=== PATIENT | female | born 1985 | race Caucasian/White ===

== ENCOUNTER 2021-10-14 15:06 | Outpatient (CLI) | payer BC | END 2021-10-14 15:07 | disposition home or self-care (01) | LOC: CSHRAD 15:06 | PROVIDERS: ATTEND Advanced Practice Midwife | DX: Z86.16 Personal history of COVID-19 (principal) | CPT/HCPCS: 71046 ==

== ENCOUNTER 2021-12-13 19:17 | Inpatient (IN) | payer BC ==
[2021-12-13 19:40] VITALS: BMI 29.9
[2021-12-13] MEDS ORDERED: hydrALAZINE 20 MG/ML VIAL SLOW IVP PRN (20:23)
[2021-12-13] MEDS ORDERED: Methylergonovine 0.2 MG/ML VIAL IM PRN (20:23)
[2021-12-13] MEDS ORDERED: Lactated Ringer's 1,000 ML IV PRN (20:23)
[2021-12-13] MEDS ORDERED: NS w/ Oxytocin 30 units 500 ML IV PRN (20:23)
[2021-12-13] MEDS ORDERED: Misoprostol 200 MCG TAB PR PRN (20:23)
[2021-12-13] MEDS ORDERED: Lidocaine 1% (PF) 30 ML VIAL SC PRN (20:23)
[2021-12-13] MEDS ORDERED: Ibuprofen 800 MG TAB PO PRN (20:23)
[2021-12-13] MEDS ORDERED: Promethazine HCl 25 MG/ML VIAL IM PRN (20:23)
[2021-12-13] MEDS ORDERED: HYDROcodone/Acetaminophen 5/325 mg Tablet PO PRN ×2 (20:23)
[2021-12-13] MEDS ORDERED: Ondansetron PF 4 MG/2 ML Vial IVP PRN (20:23)
[2021-12-13] MEDS ORDERED: Acetaminophen 500 MG TAB PO PRN (20:23)
[2021-12-13] MEDS ORDERED: NS w/ Oxytocin 30 units 500 ML IV SCH (21:00)
[2021-12-13 21:58] LABS: Hemoglobin 12.9 g/dL (12.0-15.5); Mean Corpuscular HGB CONC 34.4 g/dL (32.0-36.0); Mean Corpuscular Hemoglobin 29.6 pg (27.0-33.0); Mean Platelet Volume 11.4 fl (7.4-10.4); Platelet Count 125 10x3/uL (150-450); RBC Distribution Width 13.2 % (11.5-14.5); Red Blood Cell (RBC) Count 4.36 10x6/uL (3.90-5.03); White Blood Cell (WBC) Count 11.9 10x3/uL (3.5-10.5)
[2021-12-13] MEDS ORDERED: Oxytocin 10 UNITS/ML VIAL ONE (22:03)
[2021-12-13 22:06] LABS: INR-International Normal Ratio 0.9; PTT 27.4 sec (22.0-33.0); Prothrombin Time 9.3 sec (9.5-12.1)
[2021-12-13 22:35] LABS: Hep B Surf Ag Non-Reactive S/CO (NonReactive)
[2021-12-13 22:39] LABS: Syphilis Antibody Nonreactive (Nonreactive); Syphilis Antibody Index 0.04 S/CO (<1.00 Non-Reactive)
[2021-12-14] MEDS ORDERED: Benzocaine-Menthol 82.5 ML CAN TOP PRN (03:25)
[2021-12-14] MEDS ORDERED: Preparation H Ointment 28 GM TUBE PR PRN (03:25)
[2021-12-14] MEDS ORDERED: Misoprostol 200 MCG TAB VAG PRN (03:25)
[2021-12-14] MEDS ORDERED: hydrALAZINE 20 MG/ML VIAL SLOW IVP PRN (03:25)
[2021-12-14] MEDS ORDERED: Lanolin Ointment 7 GM TUBE TOP PRN (03:25)
[2021-12-14] MEDS ORDERED: Milk Of Magnesia 30 ML UDCUP PO PRN (03:25)
[2021-12-14] MEDS ORDERED: Methylergonovine 0.2 MG/ML VIAL IM PRN (03:25)
[2021-12-14] MEDS ORDERED: Ondansetron PF 4 MG/2 ML Vial IVP PRN (03:25)
[2021-12-14] MEDS ORDERED: HYDROcodone/Acetaminophen 5/325 mg Tablet PO PRN ×2 (03:25)
[2021-12-14] MEDS ORDERED: NS w/ Oxytocin 30 units 500 ML IV PRN (03:25)
[2021-12-14] MEDS ORDERED: Bisacodyl 10 MG SUPP PR PRN (03:25)
[2021-12-14] MEDS: Ibuprofen 800 MG TAB PO SCH ×3 (05:17→23:41)
[2021-12-14] MEDS: Ferrous Sulfate 325 MG TAB PO SCH ×2 (08:44→16:49)
[2021-12-14] MEDS: Prenatal Vitamin 1 TAB PO SCH (08:50)
[2021-12-14] MEDS: Docusate 100 MG CAP PO SCH ×2 (08:50→21:44)
[2021-12-15 07:41] VITALS: BP 108/58; TEMP 97.8
[2021-12-15] MEDS: Ferrous Sulfate 325 MG TAB PO SCH (07:58)
[2021-12-15] MEDS: Prenatal Vitamin 1 TAB PO SCH (08:59)
[2021-12-15] MEDS: Ibuprofen 800 MG TAB PO SCH (09:00)
[2021-12-15] MEDS: Docusate 100 MG CAP PO SCH (09:00)
== END 2021-12-15 13:30 | disposition home or self-care (01) | DRG 807 ==
LOC: CSHLD/OP 19:17 → CSHLD 20:41 → CSHPP 12-14 00:58
PROVIDERS: ADMIT Obstetrics & Gynecology; ATTEND Obstetrics & Gynecology
PROC: 10E0XZZ Delivery of Products of Conception, External Approach (ICD-10-PCS; principal; 2021-12-13)
PROC: 0KQM0ZZ Repair Perineum Muscle, Open Approach (ICD-10-PCS; 2021-12-13)
DX: O99.52 Diseases of the respiratory system complicating childbirth (principal); Z37.0 Single live birth; J45.909 Unspecified asthma, uncomplicated; Z3A.39 39 weeks gestation of pregnancy; Z14.1 Cystic fibrosis carrier; Z79.899 Other long term (current) drug therapy; Z85.828 Personal history of other malignant neoplasm of skin; Z88.8 Allergy status to other drugs, medicaments and biological substances; Z88.1 Allergy status to other antibiotic agents; O70.1 Second degree perineal laceration during delivery; O77.0 Labor and delivery complicated by meconium in amniotic fluid
CPT/HCPCS: 85027; 85610; 85730; 86780; 86850; 86900; 86901; 87340; 99285

== ENCOUNTER 2023-06-18 14:18 | Outpatient (CLI) | payer BC | END 2023-06-18 14:19 | disposition home or self-care (01) | LOC: CSHLAB 14:18 | PROVIDERS: ATTEND Obstetrics & Gynecology | DX: Z01.818 Encounter for other preprocedural examination (principal); O02.0 Blighted ovum and nonhydatidiform mole | CPT/HCPCS: 71046; 80053; 84702; 85027; 86850; 86900; 86901 ==

== ENCOUNTER 2024-03-24 10:37 | Outpatient (CLI) | payer BC | END 2024-03-24 10:38 | disposition home or self-care (01) | LOC: CSHMAMMO 10:37 | PROVIDERS: ATTEND Internal Medicine | DX: Z12.31 Encounter for screening mammogram for malignant neoplasm of breast (principal); N63.13 Unspecified lump in the right breast, lower outer quadrant; Z80.3 Family history of malignant neoplasm of breast; Z85.828 Personal history of other malignant neoplasm of skin | CPT/HCPCS: 77063; 77067 ==

== ENCOUNTER 2024-11-30 19:39 | Inpatient (IN) | payer BC ==
[2024-11-30 19:55] VITALS: BMI 30.9
[2024-11-30] MEDS ORDERED: hydrALAZINE 20 MG/ML VIAL SLOW IVP PRN ×2 (20:43→23:45)
[2024-11-30 23:43] LABS: Hematocrit 40.6 % (34.9-44.5); Hemoglobin 13.8 g/dL (12.0-15.5); Mean Corpuscular Hemoglobin 29.9 pg (27.0-33.0); Mean Corpuscular Volume 88.1 fL (81.6-98.3); Platelet Count 141 10x3/uL (150-450); Red Blood Cell (RBC) Count 4.61 10x6/uL (3.90-5.03); White Blood Cell (WBC) Count 12.93 10x3/uL (3.5-10.5)
[2024-11-30] MEDS ORDERED: Lidocaine 1% (PF) 30 ML VIAL SC PRN (23:45)
[2024-11-30] MEDS ORDERED: Acetaminophen 500 MG TAB PO PRN (23:45)
[2024-11-30] MEDS ORDERED: Diphenoxylate HCl/Atropine Tablet PO PRN (23:45)
[2024-11-30] MEDS ORDERED: Oxytocin 30 units/NS 500 ML 500 ML IV SCH (23:45)
[2024-11-30] MEDS ORDERED: Ibuprofen 800 MG TAB PO PRN (23:45)
[2024-11-30] MEDS ORDERED: Ondansetron PF 4 MG/2 ML Vial IVP PRN (23:45)
[2024-11-30] MEDS ORDERED: Methylergonovine 0.2 MG/ML VIAL IM PRN (23:45)
[2024-11-30] MEDS ORDERED: Carboprost 250 MCG/ML AMP IM PRN (23:45)
[2024-11-30] MEDS ORDERED: Tranexamic Acid 1,000 MG/10 ML VIAL IVP PRN (23:45)
[2024-12-01 00:11] LABS: Hep B Surf Ag - L&D Non-Reactive S/CO (NonReactive)
[2024-12-01 00:13] LABS: Syphilis Antibody Index 0.05 S/CO (<1.00 Non-Reactive)
[2024-12-01] MEDS: fentaNYL/Ropivacaine Epidural 100 ML ONE (00:46)
[2024-12-01] MEDS ORDERED: Ondansetron PF 4 MG/2 ML Vial IVP PRN (00:51)
[2024-12-01] MEDS ORDERED: diphenhydrAMINE 50 MG/ML VIAL IVP PRN (00:51)
[2024-12-01] MEDS ORDERED: Acetaminophen 325 MG TAB PO PRN (00:51)
[2024-12-01] MEDS ORDERED: fentaNYL 2 mcg/Ropivacaine 0.2% Epidural 100 ML CADD EPIDURAL SCH (01:00)
[2024-12-01] MEDS ORDERED: Communication Order-Pharmacy FS SCH (01:00)
[2024-12-01] MEDS: Oxytocin 30 units/NS 500 ML 500 ML IV SCH (06:45)
[2024-12-01] MEDS ORDERED: Benzocaine-Menthol 82.5 ML CAN TOP PRN (09:03)
[2024-12-01] MEDS ORDERED: Boostrix 0.5 ML (Tdap) VIAL (>/=7 yrs of age) IM ONE (09:03)
[2024-12-01] MEDS ORDERED: Bisacodyl 10 MG SUPP PR PRN (09:03)
[2024-12-01] MEDS ORDERED: HYDROcodone/Acetaminophen 5/325 mg Tablet PO PRN ×2 (09:03)
[2024-12-01] MEDS ORDERED: Milk Of Magnesia 30 ML UDCUP PO PRN (09:03)
[2024-12-01] MEDS ORDERED: hydrALAZINE 20 MG/ML VIAL SLOW IVP PRN (09:03)
[2024-12-01] MEDS ORDERED: Preparation H Ointment 28 GM TUBE PR PRN (09:03)
[2024-12-01] MEDS: Ferrous Sulfate 325 MG TAB PO SCH ×2 (10:39→17:37)
[2024-12-01] MEDS: Ibuprofen 800 MG TAB PO SCH (16:55)
[2024-12-02 04:23] VITALS: BP 112/66; TEMP 98
== END 2024-12-02 12:30 | disposition home or self-care (01) | DRG 807 ==
LOC: CSHLD/OP 19:39 → CSHLD 23:27 → CSHPP 12-01 09:40
PROVIDERS: ADMIT Obstetrics & Gynecology; ATTEND Obstetrics & Gynecology
PROC: 10E0XZZ Delivery of Products of Conception, External Approach (ICD-10-PCS; principal; 2024-11-30)
PROC: 10907ZC Drainage of Amniotic Fluid, Therapeutic from Products of Conception, Via Natural or Artificial Opening (ICD-10-PCS; principal; 2024-11-30)
DX: O76 Abnormality in fetal heart rate and rhythm complicating labor and delivery (principal); Z37.0 Single live birth; O77.0 Labor and delivery complicated by meconium in amniotic fluid; Z3A.38 38 weeks gestation of pregnancy
CPT/HCPCS: 51702; 85027; 86780; 86850; 86900; 86901; 87340; 99285; J2590; J7120